=== PATIENT | female | born 1975 | race American Indian/Alaskan Native ===

== ENCOUNTER 2019-01-15 16:17 | Outpatient (CLI) | payer OTHER | END 2019-01-15 16:30 | disposition home or self-care (01) | LOC: LAB 16:17 | DX: J11.1 Influenza due to unidentified influenza virus with other respiratory manifestations (principal); J15.7 Pneumonia due to Mycoplasma pneumoniae ==

== ENCOUNTER → 2020-09-16 | Outpatient (CLI) | payer OTHER | END | disposition home or self-care (01) | LOC: SONOGRAMA 09:28 → MAMO-SONO 10:00 | PROVIDERS: ATTEND Obstetrics & Gynecology | DX: N84.0 Polyp of corpus uteri (principal) ==

== ENCOUNTER 2021-10-03 09:14 | Outpatient (CLI) | payer OTHER | END 2021-10-03 09:23 | disposition home or self-care (01) | LOC: SONOGRAMA 09:14 | PROVIDERS: ATTEND Specialist | DX: N84.0 Polyp of corpus uteri (principal) ==